=== PATIENT | male | born 1980 | race Caucasian/White ===

== ENCOUNTER 2017-04-09 01:29 | Observation (INO) ==
[2017-04-09] MEDS ORDERED: SODIUM CHLORIDE 0.9% 1,000 ML IV STA (01:50)
--- NOTE | 2017-04-09 01:51 | Emergency Department Note ---
Eitan Mora Emily, am scribing for, and in the presence of, Marcio Caputo MD 01: 46. Harshal Mora Charles R, MD, personally performed the services described in this documentation, ascribed by Avis Laird in my presence, and it is both accurate and complete . Arrival - Arrival Chief Complaint: Psychiatric Stated Complaint: Psych Mode of Arrival: Stretcher Limitations: No Limitations Source: Patient Time Seen by Provider: 04/09/17 01:31 - History of Present Illness HPI Narrative: Pt is a 36 y/o male who was brought to ED by EMS and PD for further evaluation of possible homicidal ideation. called 911, after pt became angry for "pouring my liquor down the sink." told PD pt had a shot gun waving it around, however, police nor EMS witnessed this scene. Pt reports drinking 6- 8 shots of liquor tonight and usually drinks once a month due to having lots of stress. Pt states he does have a gun but denies homicidal and suicidal ideation. Onset (ago): hour(s) Consistency: constant Severity: mild, moderate Severity scale (1-10): 4 Quality: other Review of System - Review of System 12 point system: reviewed and no additional remarkable complaints except as stated - Review of System Constitutional: Absent: chills, fever Respiratory: Absent: respiratory distress Cardiovascular: Absent: chest pain Gastrointestinal: Absent: abdominal pain, nausea, vomiting Musculoskeletal: Absent: arm pain, neck pain Skin: Absent: rash Neurological: Absent: headache Psychiatric: Absent: suicidal thoughts, homicidal thoughts Medical,Surgical,& Family Hx - Surgical History Surgical History: noncontributory - Family History Family History: noncontributory - Social History Marital Status: Lives With:: Spouse Functional capacity: independent ambulation Exam Vital Signs: Vital Signs Temperature 98.3 F 04/09/17 01:29 Pulse Rate 116 H 04/09/17 01:29 Respiratory Rate 20 04/09/17 01:29 Blood Pressure 159/110 04/09/17 01:29 O2 Sat by Pulse Oximetry 95 04/09/17 01:29 - General General appearance: alert, in no apparent distress, other (reeks of ETOH) - Head Head exam: Present: atraumatic, normocephalic - Eye Eye exam: Present: PERRL, EOMI, other (bloodshot eyes) - ENT ENT exam: Present: mucous membranes moist. Absent: mucous membranes dry - Neck Neck exam: Present: full ROM - Chest Chest inspection: Present: symmetric chest wall rise - Respiratory Respiratory exam: Present: normal lung sounds bilaterally. Absent: respiratory distress - Cardiovascular Cardiovascular exam: Present: regular rate, normal rhythm, normal heart sounds - Extremities Exam Extremities exam: Present: full ROM. Absent: pedal edema - Neurological Exam Neurological exam: Present: alert, oriented X3, CN II-XII intact, other ( slurred speech). Absent: motor sensory deficit - Psychiatric Psychiatric exam: Present: normal affect. Absent: homicidal ideation, suicidal ideation - Skin Skin exam: Present: warm, dry Course Course Narrative: After further discussion with the patient his mental state has declined he is very paranoid he is also threatening to his and with a history with the guns he has been just fine is used for the gun. Patient is still extremely volatile emotional labile and a my opinion he is has suicidal ideation with a plan threat this very real patient be placed on a 72 hour hold and transferred to a psychiatric facility. I spoke to his and the patient that we will will do all necessary means to protect the patient and others if that means sedation with intubation - Reevaluation(s) Reevaluation #1: Patient was reevaluated he has now become belligerent and uncooperative. His is here they are fighting in the room. Pooler is here talking to them. Patient was allegedly carrying a shotgun around and a handgun threatening to kill himself at hand and the triggering gun towards his head this is verified by his and also verified by a community relations officer was called on the scene to help de-escalate the situation. Patient is not being cooperative to treatment I told the patient will be placed on 72 hour hold for his own good since he is a threat to others and himself. Time: 03:16 Reevaluation #2: Due to the fact that we have no place to place his patient and he is high risk we are forced to admit the patient to our facility to find placement hospitalist will come down to evaluate patient for admission Time: 04:59 Critical Care Time Critical Care Time: Yes Total Critical Care Time: 90 Disposition Clinical Impression: Suicidal ideation, Acute anxiety, Depression, Acute alcohol intoxication, Acute psychosis Case discussed with: patient, patient's family Disposition: Still a Patient Condition: Guarded Time of Disposition: 04:00
--- NOTE | 2017-04-09 05:36 | Hospitalist History & Physical ---
Assessment and Plan (1) Suicidal ideation Status: Acute Current Visit: Yes (2) Acute anxiety Status: Acute Current Visit: Yes (3) Depression Status: Acute Current Visit: Yes (4) Acute alcohol intoxication Status: Acute Assessment and plan: Patient has refused lab draws or urine. We are admitting him to a [facility] bed with one-on-one observation. Will consult social media developer to assist with psychiatric management Current Visit: Yes History of Present Illness Chief complaint: Suicidal threats History of present illness: Mr. Baez is a 36 year old male with no past medical history of possible hypertension and depression was in his normal state of health until [facility]. Apparently patient had been drinking. He says that he does not drink every day and that he binge drinks. Apparently he has some grief issues that he is trying to work through that he self medicates. called 911. Patient apparently became angry after she poured some of his liquor down the sink. The told the police department that he had a gun waving around. Patient admitted to me that when he and his got an argument and she was leaving he told her that he was going to kill himself she did not come back in 5 minutes. Patient has been uncooperative in the ER. He will not allow blood or urine to be drawn. He is not being cooperative. He seems emotionally labile. I was consulted to admit the suicidal patient since we have place to transfer this patient to because no psych beds are available [facility]. Medical,Surgical,& Family Hx - Medical History Psychological: History of: Depression - Surgical History Orthopedic Surgeries: Surgical HX of;: Orthopedic Surgery - Family History Additional Family History: Hypertension, increased cholesterol, depression - Social History Smoking Status: Current every day smoker Frequency of Alcohol Use: Frequently Type of Drug Use: Marijuana, Prescription Drug Abuse 12 point system: reviewed and no additional remarkable complaints except as stated Exam - Constitutional Vitals: Period Temp Pulse Resp BP Sys/Flores Pulse Ox Last 24 Hr 98.3 F-98.3 F 116-116 20-20 159-159/110-110 95 General appearance: normal weight, no acute distress, disheveled - Head Head exam: Present: normal inspection - Eye Eye exam: Present: EOMI, conjunctival injection Pupils: Present: AUDI - ENT ENT exam: Present: normal exam - Neck Neck exam: Present: normal inspection - Respiratory Respiratory exam: Present: clear to auscultation bilaterally - Cardiovascular Cardiovascular exam: Present: regular rate and rhythm - GI/Abdominal GI/Abdominal exam: Present: normal bowel sounds - Extremities Exam Extremities exam: Present: normal inspection - Back Exam Back exam: Present: normal inspection - Neurological Exam Neurological exam: Present: alert, oriented X3 - Psychiatric Psychiatric exam: Present: agitated, depressed - Skin Skin exam: Present: normal color
[2017-04-09] MEDS ORDERED: ACETAMINOPHEN 325 MG TABLET PO PRN (05:48)
[2017-04-09] MEDS ORDERED: ONDANSETRON 4 MG/2 ML VIAL IV PRN (05:48)
[2017-04-09] MEDS ORDERED: LORazepam 1 MG TABLET PO PRN (05:52)
[2017-04-09] MEDS ORDERED: LABETALOL 20 MG/4 ML SYRINGE IV PRN (08:04)
[2017-04-09] MEDS ORDERED: THIAMINE 100 MG TABLET PO SCH (09:00)
[2017-04-09] MEDS ORDERED: FOLIC ACID 1 MG TABLET PO SCH (09:00)
[2017-04-09] MEDS ORDERED: MULTIVITAMIN (CENTRUM) TABLET PO SCH (09:00)
[2017-04-09] MEDS ORDERED: amLODIPine 10 MG TABLET PO SCH (09:30)
[2017-04-09 12:00] LABS: Basophils # 0.1 10*3/uL (0.0-0.2); Basophils % 0.8 % (0.0-0.8); Eosinophils # 0.1 10*3/uL (0.0-0.87); Eosinophils % 1.5 % (0.00-10.9); Hemoglobin 16.3 GM/DL (14.0-18.0); Immature Granulocytes % 0.2 %; Immature Granulocytes Absolute 0.02 #; Lymphocytes # 3.6 10*3/uL (1.4-4.0); Lymphocytes % 37.7 % (21.2-54.2); Mean Corpuscular Hemoglobin 29 PG (27-34); Mean Corpuscular Volume 86.3 FL (87-102); Mean Platelet Volume 9.8 FL (9.6-12.0); Monocytes # 0.7 10*3/uL (0.11-0.8); Monocytes % 6.9 % (1.7-12.7); Neutrophils % 52.9 % (38.7-73.9); Platelet Count 236 T/CUMM (130-400); Red Blood Count 5.56 MC/CUMM (3.8-5.5); Red Cell Distribution Width 13.5 % (9.3-17.3); White Blood Count 9.5 T/CUMM (4-12)
[2017-04-09 12:06] VITALS: BP 155/99
[2017-04-09 12:25] LABS: Calcium 9.5 MG/DL (8.5-10.1); Potassium 4.3 MMOL/L (3.5-5.1)
--- NOTE | 2017-04-09 16:13 | Discharge Summary ---
Hospital Course - Hospital Course Hospital Course: 36 year old male with h/ohypertension and depression was in his normal state of health until tonight. Apparently patient had been drinking. He stated that he does not drink every day and that he binge drinks. Apparently he has some grief issues that he was trying to work through that he self medicates. called 911. Patient apparently became angry after she poured some of his liquor down the sink. Initially patient had some suicidal and homicidal ideation under the influence of alcohol. Patient has been uncooperative in the ERand not allow blood to be drawn, so we do not have an alcohol level on him. He was admitted under hospice service to the medical floor under one-to-one watch. Blood pressure was significantly elevated. It was treated with IV labetalol as well as Norvasc was started. As patient sobered up his mood became much better. electrical line worker from [facility] evaluated him and discussed with the staff psychiatrist who felt that patient does not need inpatient treatment and could be managed as an outpatient with outpatient psychiatric evaluation and treatment, and that treatment from psychiatry is scanned in the chart. Since patient has no further homicidal ideation or suicidal ideation, patient can be managed as an outpatient. I discussed with the patient's as well and she is okay with him going home with her. Prescriptions and work excuse were provided as per request. - Time spent with patient Time with patient DS: Less than 30 minutes Diagnosis - Discharge Diagnosis (1) Acute alcohol intoxication Status: Resolved Specialty Discharge - Follow Up or Referrals Discharge Plan - Discharge Medications No Action No Known Home Medications [No Known Home Medications] - Follow Up or Referral - Forms/Instructions Instructions: Depression (DC), Alcohol Intoxication (DC), Suicide Prevention for Adults (DC), Anxiety (DC) Exam - Constitutional Vitals: Period Temp Pulse Resp BP Sys/Flores Pulse Ox Last 24 Hr 97.4 F-98.3 F 84-116 18-20 143-163/93-116 95-100 General appearance: no acute distress - Head Head exam: Present: normal inspection, normocephalic - Eye Eye exam: Present: EOMI - Neck Neck exam: Present: normal inspection - Neurological Exam Neurological exam: Present: alert, oriented X3 - Psychiatric Psychiatric exam: Present: normal affect, normal mood - Skin Skin exam: Present: normal color Discharge Results Procedures and tests throughout hospitalization: Pending Orders 04/09/17 01:50 Drug Screen, Urine Stat Labs on day of discharge: Labs from last 24 hours 04/09/17 04/09/17 11:46 11:46 WBC 9.5 RBC 5.56 H Hgb 16.3 Hct 48.0 MCV 86.3 L MCH 29 MCHC 34.0 RDW 13.5 Plt Count 236 MPV 9.8 Neut % (Auto) 52.9 Lymph % (Auto) 37.7 [place] % (Auto) 6.9 Eos % (Auto) 1.5 Baso % (Auto) 0.8 Neut # (Auto) 5.0 Lymph # (Auto) 3.6 [place] # (Auto) 0.7 Eos # (Auto) 0.1 Baso # (Auto) 0.1 Immature Gran % 0.2 Nucleated RBC % 0.0 Immature Gran # 0.02 Nucleated RBCs # 0.00 Immature Plt Fraction 0.0 Sodium 143 Potassium 4.3 Chloride 109 H Carbon Dioxide 29 Anion Gap 9.3 BUN 13 Creatinine 1.20 GFR Calculation 95 BUN/Creatinine Ratio 10.00 Glucose 88 Calculated Osmolality 283.0 Calcium 9.5 DS: Provider Date of admission: 04/09/17 05:48 Primary care physician: Sam Deluca Attending physician on admission: Julio César Gibbs MD Consults: 04/09/17 05:51 Consult to Case Mgmt/Social Srvs [CONS] Routine Reason for Case Mgmt/Social Srvs: Discharge Planning Psychiatric Management Discharging clinician: Selvin Bailey MD
--- NOTE | 2017-04-09 16:15 | Discharge Summary ---
Hospital Course - Hospital Course Hospital Course: 36 year old male with h/ohypertension and depression was in his normal state of health until tonight. Apparently patient had been drinking. He stated that he does not drink every day and that he binge drinks. Apparently he has some grief issues that he was trying to work through that he self medicates. called 911. Patient apparently became angry after she poured some of his liquor down the sink. Initially patient had some suicidal and homicidal ideation under the influence of alcohol. Patient has been uncooperative in the ERand not allow blood to be drawn, so we do not have an alcohol level on him. He was admitted under hospice service to the medical floor under one-to-one watch. Blood pressure was significantly elevated. It was treated with IV labetalol as well as Norvasc was started. As patient sobered up his mood became much better. rice farmworker from [facility] evaluated him and discussed with the staff psychiatrist who felt that patient does not need inpatient treatment and could be managed as an outpatient with outpatient psychiatric evaluation and treatment, and that treatment from psychiatry is scanned in the chart. Since patient has no further homicidal ideation or suicidal ideation, patient can be managed as an outpatient. I discussed with the patient's as well and she is okay with him going home with her. Prescriptions and work excuse were provided as per request. Diagnosis - Discharge Diagnosis (1) Acute alcohol intoxication Status: Resolved Specialty Discharge - Follow Up or Referrals Discharge Plan - Discharge Medications New amLODIPine [Norvasc] 10 mg PO DAILY #30 tablet - Follow Up or Referral - Forms/Instructions Instructions: Depression (DC), Alcohol Intoxication (DC), Suicide Prevention for Adults (DC), Anxiety (DC) Exam - Constitutional Vitals: Period Temp Pulse Resp BP Sys/Flores Pulse Ox Last 24 Hr 97.4 F-98.3 F 84-116 18-20 143-163/93-116 95-100 Discharge Results Procedures and tests throughout hospitalization: Pending Orders 04/09/17 01:50 Drug Screen, Urine Stat Labs on day of discharge: Labs from last 24 hours 04/09/17 04/09/17 11:46 11:46 WBC 9.5 RBC 5.56 H Hgb 16.3 Hct 48.0 MCV 86.3 L MCH 29 MCHC 34.0 RDW 13.5 Plt Count 236 MPV 9.8 Neut % (Auto) 52.9 Lymph % (Auto) 37.7 [place] % (Auto) 6.9 Eos % (Auto) 1.5 Baso % (Auto) 0.8 Neut # (Auto) 5.0 Lymph # (Auto) 3.6 [place] # (Auto) 0.7 Eos # (Auto) 0.1 Baso # (Auto) 0.1 Immature Gran % 0.2 Nucleated RBC % 0.0 Immature Gran # 0.02 Nucleated RBCs # 0.00 Immature Plt Fraction 0.0 Sodium 143 Potassium 4.3 Chloride 109 H Carbon Dioxide 29 Anion Gap 9.3 BUN 13 Creatinine 1.20 GFR Calculation 95 BUN/Creatinine Ratio 10.00 Glucose 88 Calculated Osmolality 283.0 Calcium 9.5 DS: Provider Date of admission: 04/09/17 05:48 Primary care physician: Sam Deluca Attending physician on admission: Julio César Gibbs MD Consults: 04/09/17 05:51 Consult to Case Mgmt/Social Srvs [CONS] Routine Reason for Case Mgmt/Social Srvs: Discharge Planning Psychiatric Management Discharging clinician: Selvin Bailey MD
== END 2017-04-09 16:30 | disposition home or self-care (01) ==
LOC: EDUNIT# → EDBD → N.EDINP 01:29 → N.ED 01:29 → SUATTDRO 05:48 → N.5E 06:21
PROVIDERS: ADMIT Internal Medicine; ATTEND Hospitalist